=== PATIENT | female | born 1985 | race Caucasian/White ===

== ENCOUNTER 2023-08-19 11:01 | Outpatient (CLI) | payer OTHER | END 2023-08-19 11:02 | disposition home or self-care (01) | LOC: SCSRAD 11:01 | PROVIDERS: ATTEND Chiropractor | DX: M54.50 Low back pain, unspecified (principal); M53.3 Sacrococcygeal disorders, not elsewhere classified; M43.17 Spondylolisthesis, lumbosacral region | CPT/HCPCS: 72100 ==